=== PATIENT | male | born 2000 | race Caucasian/White ===

== ENCOUNTER 2023-03-14 19:34 | Emergency (ER) | payer SELFPAY ==
[2023-03-14 19:52] VITALS: TEMP 98; BMI 27.3
[2023-03-14] MEDS ORDERED: SODIUM CHLORIDE 0.9% 500 ML INFUS.BAG IV ONE ×2 (20:13→21:45)
[2023-03-14 20:45] LABS: BASO % 0.3 % (0-2.0); EOS % 1.4 % (0-4.5); HEMATOCRIT 46.9 % (35.4-49); HEMOGLOBIN 16.4 GM/dL (11.7-16.9); LYMPH % 39.2 % (8-40); MCH 29.1 pg (25.7-33.7); MCHC 34.9 g/dl (32.0-35.9); MEAN CELL VOLUME 83.4 fl (80-96); MONO % 5.2 % (3.8-10.2); NEUT % 53.9 % (42.8-82.8); PLATELET COUNT 285 10^3/uL (134-434); RBC 5.63 M/mm3 (4.00-5.60); RDW 13.6 % (11.9-15.9); URINE APPEARANCE CLEAR; URINE BILIRUBIN NEGATIVE (NEGATIVE); URINE COLOR YELLOW; URINE GLUCOSE (UA) NEGATIVE (NEGATIVE); URINE KETONE NEGATIVE (NEGATIVE); URINE LEUK ESTERASE NEGATIVE (NEGATIVE); URINE NITRITE NEGATIVE (NEGATIVE); URINE PROTEIN NEGATIVE (NEGATIVE); URINE UROBILINOGEN 0.2 mg/dL (0.2-1.0); WHITE BLOOD COUNT 7.2 K/mm3 (4.0-10.0)
[2023-03-14 20:51] LABS: OPIATES, URI NEGATIVE (NEGATIVE)
[2023-03-14 20:52] LABS: COCAINE, UR NEGATIVE (NEGATIVE); METHADONE, UR NEGATIVE (NEGATIVE); PHENCYCLIDINE,URINE NEGATIVE (NEGATIVE); URINE AMPHETAMINES NEGATIVE (NEGATIVE); URINE BARBITURATES NEGATIVE (NEGATIVE); URINE BENZODIAZEPINES NEGATIVE (NEGATIVE)
[2023-03-14 21:08] LABS: POTASSIUM 3.9 mmol/L (3.5-5.1)
[2023-03-14 21:10] LABS: BLOOD UREA NITROGEN 21.8 mg/dL (7-18); CALCIUM 9.2 mg/dL (8.5-10.1)
[2023-03-14 21:11] LABS: ALBUMIN 4.6 g/dl (3.4-5.0); MAGNESIUM 2.1 mg/dL (1.8-2.4)
[2023-03-14 21:13] LABS: CREATININE 1.1 mg/dL (0.55-1.3)
[2023-03-14 21:15] LABS: TOT PROT 8.8 g/dl (6.4-8.2)
[2023-03-14 21:21] LABS: LACTIC ACID 4.2 mmol/L (0.4-2.0)
[2023-03-15 00:33] VITALS: BP 105/65; PULSE 61; RESP 16
== END 2023-03-15 00:40 | disposition home or self-care (01) ==
LOC: JER 19:34
DX: R20.0 Anesthesia of skin (principal); R20.2 Paresthesia of skin; R06.4 Hyperventilation
CPT/HCPCS: 36415; 71045-TC-FY; 80053; 80307; 81003; 82550; 83605; 83735; 84484; 85025; 93005; 93010; 99285-25

== ENCOUNTER 2023-10-10 13:28 | Emergency (ER) | payer OTHER ==
[2023-10-10 13:37] VITALS: BP 124/69; PULSE 71; RESP 20; TEMP 98.9; BMI 19.3
[2023-10-10] MEDS ORDERED: FAMOTIDINE 20 MG/50 ML IVPB 20 MG/50 ML MG IVPB ONE (14:27)
[2023-10-10 15:06] LABS: BASO % 0.3 % (0-2.0); EOS % 3.8 % (0-4.5); HEMATOCRIT 47.8 % (35.4-49); HEMOGLOBIN 16.2 GM/dL (11.7-16.9); MCH 29.1 pg (25.7-33.7); MCHC 33.9 g/dl (32.0-35.9); MEAN CELL VOLUME 85.9 fl (80-96); MONO % 5.1 % (3.8-10.2); NEUT % 59.8 % (42.8-82.8); PLATELET COUNT 255 10^3/uL (134-434); RBC 5.56 M/mm3 (4.00-5.60); RDW 13.8 % (11.9-15.9); WHITE BLOOD COUNT 6.3 K/mm3 (4.0-10.0)
[2023-10-10 15:07] LABS: PH,URINE 5.5 (5.0-8.0); URINE APPEARANCE CLEAR; URINE BILIRUBIN NEGATIVE (NEGATIVE); URINE COLOR YELLOW; URINE GLUCOSE (UA) NEGATIVE (NEGATIVE); URINE KETONE TRACE (NEGATIVE); URINE LEUK ESTERASE NEGATIVE (NEGATIVE); URINE NITRITE NEGATIVE (NEGATIVE); URINE PROTEIN NEGATIVE (NEGATIVE)
[2023-10-10] MEDS ORDERED: ONDANSETRON 4 MG/2 ML VIAL ONE (15:07)
[2023-10-10] MEDS ORDERED: ACETAMINOPHEN INJECTION 100 ML IVPB ONE (15:07)
[2023-10-10 15:15] LABS: INR 1.15 (0.83-1.09); PROTHROMBIN TIME (PATIENT) 12.9 SEC (9.7-13.0)
[2023-10-10 15:18] LABS: ACTIVATED PTT 30.4 SECONDS (25.2-36.5)
[2023-10-10] MEDS: ACETAMINOPHEN 1000 MG/100 ML BAG IVPB ONE (15:24)
[2023-10-10] MEDS: ONDANSETRON 4 MG/2 ML VIAL IVPUSH ONE (15:25)
[2023-10-10] MEDS: SODIUM CHLORIDE 0.9% 500 ML INFUS.BAG IV ONE (15:25)
[2023-10-10 15:35] LABS: POTASSIUM 3.9 mmol/L (3.5-5.1)
[2023-10-10 15:37] LABS: CALCIUM 9.4 mg/dL (8.5-10.1)
[2023-10-10 15:38] LABS: ALBUMIN 4.4 g/dl (3.4-5.0); BLOOD UREA NITROGEN 14.4 mg/dL (7-18); MAGNESIUM 2.4 mg/dL (1.8-2.4)
[2023-10-10 15:41] LABS: CREATININE 1.1 mg/dL (0.55-1.3)
[2023-10-10 15:42] LABS: BILIRUBIN,TOTAL 1.4 mg/dL (0.2-1); TOT PROT 8.1 g/dl (6.4-8.2)
== END 2023-10-10 19:25 | disposition home or self-care (01) ==
LOC: JER 13:28
PROC: 3E030NZ Introduction of Analgesics, Hypnotics, Sedatives into Peripheral Vein, Open Approach (ICD-10-PCS; principal; 2023-10-10)
PROC: 3E030GC Introduction of Other Therapeutic Substance into Peripheral Vein, Open Approach (ICD-10-PCS; 2023-10-10)
DX: K52.9 Noninfective gastroenteritis and colitis, unspecified (principal); R10.13 Epigastric pain; R10.31 Right lower quadrant pain; R06.02 Shortness of breath; R53.83 Other fatigue; R05.9 Cough, unspecified; R42 Dizziness and giddiness; Z20.822 Contact with and (suspected) exposure to COVID-19
CPT/HCPCS: 0241U-QW; 36415; 71046-TC-FY; 74177-TC; 80053; 81003; 83690; 83735; 85025; 85610; 85730; 86850; 86900; 86901; 87086; 99285-25; J0131; Q9967

== ENCOUNTER 2024-01-24 18:36 | Emergency (ER) | payer OTHER ==
[2024-01-24 18:46] VITALS: BP 110/70; PULSE 57; RESP 16; TEMP 98.4; BMI 20.9
[2024-01-24] MEDS ORDERED: MECLIZINE HCL 12.5 MG TABLET ONE (19:45)
[2024-01-24] MEDS: MECLIZINE HCL 12.5 MG TABLET PO ONE (19:54)
== END 2024-01-24 21:16 | disposition home or self-care (01) ==
LOC: JER 18:36
DX: R42 Dizziness and giddiness (principal)
CPT/HCPCS: 93005; 93010; 99283-25

== ENCOUNTER 2024-07-31 09:02 | Emergency (ER) | payer OTHER ==
[2024-07-31] MEDS ORDERED: FAMOTIDINE 20 MG TABLET ONE (10:10)
[2024-07-31] MEDS ORDERED: MECLIZINE HCL 25 MG TABLET (FP) ONE (10:10)
[2024-07-31] MEDS: FAMOTIDINE 10 MG TABLET PO ONE (10:12)
[2024-07-31] MEDS: MECLIZINE HCL 25 MG TABLET (FP) PO ONE (10:12)
[2024-07-31 10:24] VITALS: RESP 20; BMI 22.3
[2024-07-31 10:39] LABS: BASO % 0.1 % (0-2.0); EOS % 1.1 % (0-4.5); LYMPH % 22.9 % (8-40); MCH 28.7 pg (25.7-33.7); MCHC 33.3 g/dl (32.0-35.9); MEAN CELL VOLUME 86.4 fl (80-96); MEAN PLT VOLUME 8.3 fl (7.5-11.1); MONO % 4.8 % (3.8-10.2); NEUT % 71.1 % (42.8-82.8); PLATELET COUNT 237 10^3/uL (134-434); RBC 5.56 M/mm3 (4.00-5.60); RDW 13.9 % (11.9-15.9); WHITE BLOOD COUNT 5.2 K/mm3 (4.0-10.0)
[2024-07-31 10:56] LABS: POTASSIUM 4.5 mmol/L (3.5-5.1)
[2024-07-31 10:58] LABS: ALBUMIN 4.5 g/dl (3.4-5.0); BLOOD UREA NITROGEN 12.2 mg/dL (7-18); CALCIUM 9.7 mg/dL (8.5-10.1); MAGNESIUM 2.4 mg/dL (1.8-2.4)
[2024-07-31 11:01] LABS: CREATININE 0.9 mg/dL (0.55-1.3)
[2024-07-31 11:03] LABS: BILIRUBIN,TOTAL 1.4 mg/dL (0.2-1); TOT PROT 8.3 g/dl (6.4-8.2)
[2024-07-31 13:06] LABS: HIV INTERPRETATION NEGATIVE (NEGATIVE)
[2024-07-31 17:04] VITALS: BP 117/80; PULSE 65; TEMP 98.5
== END 2024-07-31 17:05 | disposition home or self-care (01) ==
LOC: JER 09:02
DX: R42 Dizziness and giddiness (principal)
CPT/HCPCS: 36415; 70553-TC; 80053; 83735; 85025; 86803; 87389; 93005; 93010; 99285-25